=== PATIENT | female | born 1950 | race Caucasian/White ===

== ENCOUNTER 2018-08-13 11:18 | Emergency (ER) | payer OTHER, BC ==
[~2018-08-13] VITALS: Ht 170.2 cm; Wt 65.8 kg
[2018-08-13] MEDS ORDERED: KEFLEX500 M1 PO (13:19)
[2018-08-13] MEDS ORDERED: HYDROCODONE-AP1 EAC6 PO (13:19)
[2018-08-13 14:56] VITALS: BP 132/88
== END 2018-08-13 14:56 | disposition home or self-care (01) ==
LOC: ER 11:18
DX: S92.421B Displaced fracture of distal phalanx of right great toe, initial encounter for open fracture (principal); W01.0XXA Fall on same level from slipping, tripping and stumbling without subsequent striking against object, initial encounter; Y92.89 Other specified places as the place of occurrence of the external cause; Y93.89 Activity, other specified; Y99.8 Other external cause status